=== PATIENT | female | born 1950 | race Caucasian/White ===

== ENCOUNTER 2024-08-05 15:28 | Inpatient (IN) | payer MEDICARE, OTHER ==
[~2024-08-05] VITALS: Ht 165.1 cm; Wt 65.3 kg
[2024-08-05] MEDS ORDERED: ESTR42.53 VG (16:37)
[2024-08-05] MEDS ORDERED: CHOL10005 PO (16:37)
[2024-08-05] MEDS ORDERED: DOCU100T2 PO (16:37)
[2024-08-05] MEDS ORDERED: BUPR100T5 PO (16:37)
[2024-08-05] MEDS ORDERED: MELO-107 PO (16:37)
[2024-08-05] MEDS ORDERED: LISI10TA29 PO (16:37)
[2024-08-05] MEDS ORDERED: SERT100T PO (16:37)
[2024-08-05] MEDS ORDERED: ATOR20TA PO (16:37)
[2024-08-05] MEDS: CEphaleXIN 500 MG CAPSULE PO ONE (16:44)
[2024-08-05] MEDS ORDERED: ACETAMINOPHEN 500 MG TABLET ONE (16:57)
[2024-08-05] MEDS: ACETAMINOPHEN 500 MG TABLET PO ONE ×2 (16:58→17:01)
[2024-08-05] MEDS ORDERED: OLANZAPINE 10 MG VIAL IM ONE (18:59)
[2024-08-05] MEDS: OLANZAPINE 10 MG VIAL IM ONE (19:03)
[2024-08-05 22:30] VITALS: BP 140/70; TEMP 97.6; O2SAT 95
[2024-08-05] MEDS ORDERED: MAGNESIUM HYDROXIDE 30 ML LIQUID UDC PO PRN (22:45)
[2024-08-05] MEDS ORDERED: ZOLPIDEM 5 MG TABLET PO PRN (22:45)
[2024-08-05] MEDS ORDERED: LORAZEPAM 1 MG TABLET PO PRN ×2 (22:45)
[2024-08-05] MEDS: BLOOD SUGAR DIAGNOSTIC 1 EACH STRIP VI ONE (23:25)
[2024-08-05] MEDS: ZOLPIDEM 5 MG TABLET PO PRN (23:26)
[2024-08-06 07:57] VITALS: BP 159/79; TEMP 98.2; O2SAT 98
[2024-08-06] MEDS ORDERED: CHOL-35 PO (08:40)
[2024-08-06] MEDS: ACETAMINOPHEN 325 MG TABLET PO PRN (09:33)
[2024-08-06 15:22] VITALS: BP 135/78; TEMP 98; O2SAT 96
[2024-08-06 20:00] VITALS: BP 140/73; TEMP 97.3; O2SAT 97
[2024-08-06] MEDS: OLANZAPINE 5 MG TABLET PO SCH (20:42)
[2024-08-07] MEDS: TEMAZEPAM 7.5 MG CAPSULE PO PRN (02:31)
[2024-08-07 07:46] VITALS: BP 141/77; TEMP 98; O2SAT 98
[2024-08-07] MEDS: SERTRALINE HCL 100 MG TABLET PO SCH (09:25)
[2024-08-07] MEDS: CEphaleXIN 500 MG CAPSULE PO SCH (09:25)
[2024-08-07] MEDS: OLANZAPINE 5 MG TABLET PO SCH (09:45)
[2024-08-07 15:17] VITALS: BP 146/78; TEMP 98; O2SAT 96
[2024-08-07] MEDS: MAG HYDROX/AL HYDROX/SIMETH 30 ML LIQUID UDC PO PRN (18:03)
[2024-08-07 20:00] VITALS: BP 140/79; TEMP 97.2; O2SAT 95
[2024-08-08 07:27] LABS: BASOPHILS # (AUTO) 0.1 K/UL (0.0-0.2); BASOPHILS % (AUTO) 0.9 % (0.0-2.0); DIFFERENTIAL COMMENT 1; EOSINOPHILS # (AUTO) 0.1 K/uL (0.0-0.7); EOSINOPHILS % (AUTO) 1.5 % (0.0-7.0); HEMOGLOBIN 12.6 g/dL (10.9-14.3); LYMPHOCYTES # (AUTO) 2.1 K/uL (0.8-4.8); LYMPHOCYTES % (AUTO) 37.3 % (20.5-51.5); MEAN CORPUSCULAR HEMOGLOBIN 27.5 uug (24.7-32.8); MEAN CORPUSCULAR HGB CONC 33 g/dL (32.3-35.6); MONOCYTES # (AUTO) 0.7 K/uL (0.1-1.30); MONOCYTES % (AUTO) 11.6 % (0.0-11.0); NEUTROPHILS # (AUTO) 2.8 K/uL (1.8-8.9); NEUTROPHILS % (AUTO) 48.7 % (38.5-71.5); PLATELET COUNT (AUTO) 329 K/uL (179-408); RED BLOOD CELL COUNT(AUTO) 4.58 MIL/uL (3.63-4.92); WHITE BLOOD COUNT (AUTO) 5.7 K/uL (3.8-11.8)
[2024-08-08 07:42] VITALS: BP 147/51; TEMP 98; O2SAT 94
[2024-08-08 07:52] LABS: CALCIUM 9.5 mg/dL (8.5-10.1); CARBON DIOXIDE 30 mmol/L (21-32); CHLORIDE 105 mmol/L (98-107); CREATININE 0.8 mg/dL (0.6-1.3); GLUCOSE 101 mg/dL (74-106); MAGNESIUM 2.4 mg/dL (1.8-2.4); PHOSPHOROUS 3.6 mg/dL (2.5-4.9); POTASSIUM 4.4 mmol/L (3.5-5.1); SODIUM SERUM 143 mmol/L (136-145); UREA NITROGEN, BLOOD 14 mg/dL (7-18)
[2024-08-08] MEDS: DIVALPROEX 250 MG TABLET.DR PO SCH (10:09)
[2024-08-08 15:39] VITALS: BP 139/62; TEMP 98; O2SAT 96
[2024-08-08 20:00] VITALS: BP 123/73; TEMP 98.1; O2SAT 95
[2024-08-09 07:35] VITALS: BP 149/70; TEMP 98; O2SAT 96
[2024-08-09 15:09] VITALS: BP 142/80; TEMP 98; O2SAT 99
[2024-08-09] MEDS: OLANZAPINE 5 MG TABLET PO SCH (20:32)
[2024-08-09] MEDS: ATORVASTATIN 20 MG TABLET PO SCH (20:32)
[2024-08-09 20:51] VITALS: BP 160/72; TEMP 97.7; O2SAT 98
[2024-08-09 22:30] VITALS: BP 145/76
[2024-08-10 08:14] VITALS: BP 159/71; TEMP 97.2; O2SAT 96
[2024-08-10] MEDS: LISINOPRIL 10 MG TABLET PO SCH (08:27)
[2024-08-10 16:41] VITALS: BP 152/77; TEMP 98; O2SAT 99
[2024-08-10 20:24] VITALS: BP 120/66; TEMP 98.1; O2SAT 95
[2024-08-11] MEDS: HYDROXYZINE PAMOATE 25 MG CAPSULE PO PRN (04:17)
[2024-08-11 08:15] VITALS: BP 151/76; TEMP 97.8; O2SAT 100
[2024-08-11 16:50] VITALS: BP 132/67; TEMP 97.5; O2SAT 100
[2024-08-11 19:58] VITALS: BP 141/66; TEMP 97.9; O2SAT 98
[2024-08-12 08:14] VITALS: BP 140/77; TEMP 98.1; O2SAT 97
[2024-08-12 16:20] VITALS: BP 127/71; TEMP 98.3; O2SAT 98
[2024-08-12 20:00] VITALS: BP 108/68; TEMP 97.8; O2SAT 93
[2024-08-12] MEDS: DIVALPROEX 250 MG TABLET.DR PO SCH (20:49)
[2024-08-13 07:43] VITALS: BP 137/68; TEMP 98; O2SAT 99
[2024-08-13] MEDS: OLANZAPINE 2.5 MG TABLET PO SCH (09:13)
[2024-08-13 17:28] VITALS: BP 145/62; TEMP 97.1; O2SAT 98
[2024-08-13 19:40] VITALS: BP 104/46; TEMP 98.2; O2SAT 91
[2024-08-13] MEDS: OLANZAPINE 5 MG TABLET PO SCH (20:39)
[2024-08-14 07:58] VITALS: BP 134/74; TEMP 98; O2SAT 98
[2024-08-14 15:23] VITALS: BP 143/66; TEMP 98.2; O2SAT 99
[2024-08-14 19:53] VITALS: BP 150/57; TEMP 97.6; O2SAT 98
[2024-08-15 08:04] VITALS: BP 138/71; TEMP 98; O2SAT 97
[2024-08-15 08:19] VITALS: BP 138/71
== END 2024-08-15 11:08 | DRG 885 ==
LOC: ER 15:28 → GPS 22:15
PROVIDERS: ADMIT Psychiatry & Neurology Psychiatry; ATTEND Nurse Practitioner Acute Care
DX: F31.64 Bipolar disorder, current episode mixed, severe, with psychotic features (principal); N39.0 Urinary tract infection, site not specified; E78.5 Hyperlipidemia, unspecified; Z91.83 Wandering in diseases classified elsewhere; F17.210 Nicotine dependence, cigarettes, uncomplicated; Z79.899 Other long term (current) drug therapy; I10 Essential (primary) hypertension
CPT/HCPCS: 36415; 80164; 83735; 84100; 85025; 93005; A9150; J2358; J3490